=== PATIENT | male | born 1985 | race Caucasian/White ===

== ENCOUNTER 2016-12-17 19:59 | Emergency (ER) | payer BC, OTHER ==
[~2016-12-17] VITALS: Ht 190.5 cm; Wt 82.9 kg
[2016-12-17 20:02] VITALS: TEMP 36.4; Ht 190.5 cm; Wt 82.9 kg
[2016-12-17] MEDS ORDERED: BUPIVACAINE 0.5 % 5 MG/1 ML MPF 30ML VIAL INFIL ONE (20:15)
[2016-12-17] MEDS ORDERED: XYLOCAINE 1%/SOD BICARB 20 ML VIAL INFIL ONE (20:15)
--- NOTE | 2016-12-17 20:39 | DIAGNOSTIC IMAGING REPORT ---
RIGHT SECOND AND THIRD FINGERS, 3 VIEWS HISTORY: RIGHT 2nd/3rd digit crush injuries Right COMPARISON: None. FINDINGS: Comminuted fractures at the distal tuft of the second and third fingers which are slightly distracted. There are associated soft tissue lacerations. No dislocation. No radiopaque foreign bodies. IMPRESSION: Comminuted fractures at the distal thelma of the right second and third fingers. Electronically signed by: Yogesh Gamez M.D. 12/17/2016 8:37 PM Dictated Date/Time: 12/17/2016 8:36 PM
--- NOTE | 2016-12-17 20:51 | EMERGENCY ROOM VISIT NOTE ---
ED Visit Note First contact with patient: 20:05 Chief Complaint: Cut on RIGHT hand Index and Middle Fingers History of Present Illness: Patient is a 31-year-old male who presents to the emergency department today for lacerations to the RIGHT index and middle fingers. He reports that he was lifting a heavy metal type when it fell and crushed his fingers. He was able to his fingers, but reports laceration with moderate amount of bleeding to the affected digits. He reports numbness to the tips of the fingers. He rates his current discomfort as an 8/10. He denies any associated hand pain, wrist pain, or forearm pain. His tetanus status is up -to-date. Medications: No current medications. Allergies: No known allergies. PMH: No pertinent past medical history. SHx: Patient is a 31-year-old male who lives locally. ROS: All pertinent positive and negative review of systems are appropriately documented in the History of Present Illness. Physical Exam: VITAL SIGNS - Vital signs and nursing notes were reviewed. GENERAL - 31-year-old male appearing his stated age who is in no acute distress. Communicates well with provider and answers questions appropriately. SKIN - RIGHT 2nd: There is a 1.5 cm long laceration noted to the palmar surface overlying the PIP joint. The superficial dermis has folded and avulsed with laceration underneath. The edges gape apart with traction. No foreign bodies appreciated. Upon further examination there are no deep structures including vessel, tendon, or bony structures appreciated. There is no active bleeding noted. RIGHT 3rd: There is a 2.5 cm long laceration noted to the palmar surface overlying the PIP joint. The superficial dermis has folded and avulsed with the laceration underneath. The edges gape apart with traction. No foreign bodies appreciated. Upon further examination there are no deep structures including vessel, tendon, or bony structures appreciated. There is no active bleeding noted. MUSCULOSKELETAL - Lacerations as described above. +5/5 strength appreciated of the affected digits. Full range of motion of the affected digits. NEUROLOGIC - Spinothalamic tract was found to be intact with ability to discriminate sharp versus dull sensation. No sensory defects of the dorsal column were appreciated utilizing light touch for evaluation. VASCULAR - Capillary refill was brisk. IMAGING: RIGHT SECOND AND THIRD FINGERS, 3 VIEWS HISTORY: RIGHT 2nd/3rd digit crush injuries Right COMPARISON: None. FINDINGS: Comminuted fractures at the distal tuft of the second and third fingers which are slightly distracted. There are associated soft tissue lacerations. No dislocation. No radiopaque foreign bodies. IMPRESSION: Comminuted fractures at the distal thelma of the right second and third fingers. ED Course: Patient was seen and evaluated by myself. Costs and benefits of performing primary wound closure versus no repair were discussed with the patient who verbalizes understanding. Verbal consent was obtained prior to performing the procedure. 12 cc of a 1-1 solution of 1% buffered lidocaine and 0.5% Marcaine was used to perform digital blocks of the RIGHT 2nd and 3rd digits. The wounds were cleansed and prepped in the typical sterile fashion utilizing normal saline and Betadine. The wounds were sterilely draped. Once proper anesthetization was established, the wounds were further examined and demonstrated no deep structures. The wounds were copiously irrigated with normal saline and Betadine. The RIGHT third digit was repaired closing the palmar surface laceration with 14 simple interrupted 5-0 Vicryl sutures. The wound edges closed with good approximation. The nail of the RIGHT third digit was removed using hemostats. The nailbed was repaired using 3 simple interrupted 6-0 Vicryl sutures. The nail was tacked back in place in all 4 corners with 5-0 nylon sutures. The RIGHT second digit was repaired closing the palmar surface laceration with 5 simple interrupted 5-0 nylon sutures. He wound edges closed with good approximation. The nail of the RIGHT second digit was removed using hemostats. The nailbed was repaired using 5 simple interrupted 6-0 Vicryl sutures. The nail was tacked back in place in all 4 corners with 5-0 nylon sutures. Patient tolerated the procedure well. No complications were met. The wound was cleansed and dressed with a Bacitracin dressing. A metal splint was applied to the finger for comfort. Patient was provided initial dose of Keflex in the emergency department. He will follow-up closely with Dr. Roberts this week for recheck. He will return to the emergency department for any changing or worsening symptoms. Patient discharged home in good condition. In the evaluation and treatment of this patient, the following differential diagnoses were considered: Finger Fracture, Finger Dislocation, Finger Sprain, Finger Contusion, Jersey Finger, or Mallet Finger. Impression: RIGHT 2nd Digit Laceration with Nail Bed Laceration and Tuft Fracture, RIGHT 3rd Digit Laceration with Nail Bed Laceration and Tuft Fracture Discharge Instructions: You have received several sutures on your RIGHT 2nd and 3rd digits. These sutures are NOT dissolvable and WILL need to be removed by a health care provider in 14 days. You can return to the Emergency Department or contact your Primary Care Provider to have the sutures removed. Given the extent of injuries and laceration, you will need to follow-up with Dr. Roberts of orthopedic hand surgery as discussed. Please contact his office tomorrow to set up an outpatient appointment within the next week. Please wear the splint for comfort until the sutures are removed. Proper wound care is essential for adequate wound healing and infection prevention. You can shower and clean the wound with soap and water. Do not scour over the wound, pat dry with a towel. Do not submerse the wound (i.e. bathe or dish wash) until the sutures have been removed. You can use an antibiotic ointment with a dressing over the wound for the next 3-4 days. After this time you may leave the wound dry and open to the air. If crust develops over the wound you can use a Q-tip to apply a 1:1 peroxide:water solution to clean the wound. Look for signs of infection of the wound including: increased pain, swelling, foul discharge, streaking, or increased temperature. If any of these are noticed you should return to the Emergency Department for further assessment and treatment. As with any laceration you may have received nerve damage to the surrounding tissues. This damage may or may not be permanent. You should keep the area covered with sunscreen for the first 6 months to 1 year when at risk for exposure to help minimize scarring. You can also use scar reducing creams or Vitamin E oil to help minimize scarring. You were prescribed Keflex to be taken as prescribed. This is an antibiotic. All antibiotics have the potential to cause diarrhea. Stop this medication and contact a medical provider if you were to develop any significant adverse side effects including: wheezing, shortness of breath, passing out, vomiting, or a diffuse rash. Always take antibiotics as directed and COMPLETE the ENTIRE course regardless of the improvement of your symptoms. You have been prescribed OxyIR to be used for pain control. This is a narcotic medication. You cannot drive or consume alcohol while on this medicine. This medicine should only be used for pain that cannot be controlled with over-the- counter pain medicines. For pain control, you can use the following [id number] medicines (if >12 yo): - Regular strength (325mg/tab) Tylenol (acetaminophen) 2 tabs every 4-6 hours as needed. Do not exceed 12 tablets in a 24 hour period. Avoid taking more than 4 grams (4000 mg) of Tylenol per day. This includes any other sources of acetaminophen you may take on a regular basis. - Regular strength (200 mg/tab) Advil (ibuprofen) 1-2 tabs every 4-6 hours as needed. Do not exceed a dose of 3200 mg per day. Return to the emergency department if your symptoms worsen despite treatment course outlined above. Current/Historical Medications Scheduled Cephalexin Monohydrate (Keflex), 500 MG PO QID Scheduled PRN Oxycodone Ir (Roxicodone Ir), 1-2 TAB PO Q4H PRN for Pain Allergies Coded Allergies: No Known Allergies (Verified Allergy, Unknown, `, 05/21/09) Vital Signs Date Time Temp Pulse Resp B/P Pulse Ox O2 Delivery O2 Flow Rate FiO2 12/17/16 22:59 81 18 124/70 99 12/17/16 20:02 36.4 88 19 129/61 98 Room Air Medications Administered Medications (Trade) Dose Ordered Sig/Tunde Route Start Time Stop Time Status Last Admin Dose Admin Cephalexin Monohydrate (Keflex 500MG Home Pack) 1 homepack NOW ONCE PO 12/17/16 22:30 12/17/16 22:31 DC 12/17/16 22:30 1 HOMEPACK Cephalexin Monohydrate (Keflex Cap) 500 mg NOW ONCE PO 12/17/16 22:30 12/17/16 22:31 DC 12/17/16 22:30 500 MG Oxycodone HCl (Roxicodone Immediate Rel 5MG Home Pack) 1 homepack UD ONCE PO 12/17/16 22:30 12/17/16 22:31 DC 12/17/16 22:30 1 HOMEPACK Departure Information Impression Primary Impression: Laceration of finger without complication Additional Impressions: Nailbed laceration, finger Closed fracture of tuft of distal phalanx of finger Dispostion Home / Self-Care Condition GOOD Prescriptions Oxycodone Ir (Roxicodone Ir) 5 Mg Tab 1-2 TAB PO Q4H Y for Pain, #20 TAB For Initial Treatment Prov: Meek Chang PA-C 12/17/16 Cephalexin Monohydrate (Keflex) 500 Mg Cap 500 MG PO QID for 5 Days, #20 CAP Prov: Meek Chang PA-C 12/17/16 Referrals No Doctor, Assigned (PCP) Milan Roberts MD Patient Instructions [facility] Additional Instructions You have received several sutures on your RIGHT 2nd and 3rd digits. These sutures are NOT dissolvable and WILL need to be removed by a health care provider in 14 days. You can return to the Emergency Department or contact your Primary Care Provider to have the sutures removed. Given the extent of injuries and laceration, you will need to follow-up with Dr. Roberts of orthopedic hand surgery as discussed. Please contact his office tomorrow to set up an outpatient appointment within the next week. Please wear the splint for comfort until the sutures are removed. Proper wound care is essential for adequate wound healing and infection prevention. You can shower and clean the wound with soap and water. Do not scour over the wound, pat dry with a towel. Do not submerse the wound (i.e. bathe or dish wash) until the sutures have been removed. You can use an antibiotic ointment with a dressing over the wound for the next 3-4 days. After this time you may leave the wound dry and open to the air. If crust develops over the wound you can use a Q-tip to apply a 1:1 peroxide:water solution to clean the wound. Look for signs of infection of the wound including: increased pain, swelling, foul discharge, streaking, or increased temperature. If any of these are noticed you should return to the Emergency Department for further assessment and treatment. As with any laceration you may have received nerve damage to the surrounding tissues. This damage may or may not be permanent. You should keep the area covered with sunscreen for the first 6 months to 1 year when at risk for exposure to help minimize scarring. You can also use scar reducing creams or Vitamin E oil to help minimize scarring. You were prescribed Keflex to be taken as prescribed. This is an antibiotic. All antibiotics have the potential to cause diarrhea. Stop this medication and contact a medical provider if you were to develop any significant adverse side effects including: wheezing, shortness of breath, passing out, vomiting, or a diffuse rash. Always take antibiotics as directed and COMPLETE the ENTIRE course regardless of the improvement of your symptoms. You have been prescribed OxyIR to be used for pain control. This is a narcotic medication. You cannot drive or consume alcohol while on this medicine. This medicine should only be used for pain that cannot be controlled with over-the- counter pain medicines. For pain control, you can use the following [id number]-[id number] medicines (if >12 yo): - Regular strength (325mg/tab) Tylenol (acetaminophen) 2 tabs every 4-6 hours as needed. Do not exceed 12 tablets in a 24 hour period. Avoid taking more than 4 grams (4000 mg) of Tylenol per day. This includes any other sources of acetaminophen you may take on a regular basis. - Regular strength (200 mg/tab) Advil (ibuprofen) 1-2 tabs every 4-6 hours as needed. Do not exceed a dose of 3200 mg per day. Return to the emergency department if your symptoms worsen despite treatment course outlined above. Problem Qualifiers Primary Impression: Laceration of finger without complication Encounter type: initial encounter Qualified Codes: S61.219A - Laceration without foreign body of unspecified finger without damage to nail, initial encounter Additional Impressions: Nailbed laceration, finger Encounter type: initial encounter Qualified Codes: S61.319A - Laceration without foreign body of unspecified finger with damage to nail, initial encounter Closed fracture of tuft of distal phalanx of finger Encounter type: initial encounter Qualified Codes: S62.639A - Displaced fracture of distal phalanx of unspecified finger, initial encounter for closed fracture
[2016-12-17] MEDS ORDERED: CEPHALEXIN 500MG HOME PACK 1 EA BTL PO ONE (22:30)
[2016-12-17] MEDS ORDERED: OXYCODONE IR HOME PACK PO ONE (22:30)
[2016-12-17] MEDS ORDERED: CEPHALEXIN MONOHYDRATE 250 MG CAP PO ONE (22:30)
[2016-12-17] MEDS ORDERED: OXYC1TAB3 PO (22:46)
[2016-12-17] MEDS ORDERED: CEPH500C PO (22:46)
[2016-12-17 22:59] VITALS: BP 124/70; PULSE 81; O2SAT 99
== END 2016-12-17 22:59 | disposition home or self-care (01) ==
LOC: C.EDB 20:01 → C.EDD 22:59
DX: S61.310A Laceration without foreign body of right index finger with damage to nail, initial encounter (principal); S61.312A Laceration without foreign body of right middle finger with damage to nail, initial encounter; S62.630A Displaced fracture of distal phalanx of right index finger, initial encounter for closed fracture; S62.632A Displaced fracture of distal phalanx of right middle finger, initial encounter for closed fracture; W20.8XXA Other cause of strike by thrown, projected or falling object, initial encounter

== ENCOUNTER 2016-12-31 13:54 | Emergency (ER) | payer OTHER ==
[~2016-12-31] VITALS: Ht 190.5 cm; Wt 82.0 kg
[~2016-12-31 13:54] MED LIST: OXYC1TAB3 PO
[2016-12-31 14:03] VITALS: BP 107/66; PULSE 77; TEMP 36.5; O2SAT 96; Ht 190.5 cm; Wt 82.0 kg
--- NOTE | 2016-12-31 14:37 | EMERGENCY ROOM VISIT NOTE ---
ED Visit Note First contact with patient: 14:22 CHIEF COMPLAINT: Suture removal This patient returns to the ED today for removal of sutures that were placed 14 days ago. There has been no swelling, redness, or drainage from the wound. The patient feels like the laceration is healing well. REVIEW OF SYSTEMS: Head: No headache, injury or neck pain. Skin: No rash, new lesions, or masses. General: No fever or chills, fatigue, loss of appetite , or significant recent weight gain or loss. PMH: The patient is healthy; there is no significant medical or surgical history. SOCIAL HISTORY: Patient lives at home. PHYSICAL EXAM: Vital Signs: Reviewed Nurse's notes. There is a sutured wound on the RIGHT 3rd and 4th digits with no signs of infection. There is no erythema, swelling, or tenderness. EMERGENCY DEPARTMENT COURSE: The sutures were removed without any difficulty and there was no separation of the wound edges. DIAGNOSIS: Healing laceration and suture removal DISCHARGE INSTRUCTIONS AND TREATMENT: Wash any remaining crusts off of the wound today and resume your normal activities. Keep followup with orthopedic surgery on Sunday as scheduled. Current/Historical Medications No Active Prescriptions or Reported Meds Allergies Coded Allergies: No Known Allergies (Verified , `, 12/31/16) Vital Signs Date Time Temp Pulse Resp B/P Pulse Ox O2 Delivery O2 Flow Rate FiO2 12/31/16 14:03 36.5 77 16 107/66 96 Room Air Departure Information Impression Primary Impression: Encounter for removal of sutures Dispostion Home / Self-Care Condition GOOD Prescriptions No Active Prescriptions or Reported Meds Referrals No Doctor, Assigned (PCP) Shani Benson PA-C Patient Instructions [facility] Additional Instructions Wash any remaining crusts off of the wound today and resume your normal activities. Keep followup with orthopedic surgery on Sunday as scheduled.
== END 2016-12-31 14:53 | disposition home or self-care (01) ==
LOC: C.EDB 13:54 → C.EDD 14:53
DX: S61.212D Laceration without foreign body of right middle finger without damage to nail, subsequent encounter (principal); S61.214D Laceration without foreign body of right ring finger without damage to nail, subsequent encounter; X58.XXXD Exposure to other specified factors, subsequent encounter